=== PATIENT | male | born 1970 | race Caucasian/White ===

== ENCOUNTER 2024-10-04 22:50 | Emergency (ER) | payer BC ==
[~2024-10-04] VITALS: Ht 182.9 cm; Wt 90.0 kg
[2024-10-04 22:53] VITALS: O2SAT 100
[2024-10-04 23:06] VITALS: TEMP 36.6
[2024-10-04] MEDS: ONDANSETRON HCL 4MG/2ML INJ IV ONE (23:51)
[2024-10-04 23:52] LABS: HEMATOCRIT. 43.3 % (42.0-52.0); HEMOGLOBIN. 14.2 g/dL (14.0-18.0); MEAN PLATELET VOLUME 9.2 fl (7.4-10.4); PLATELET 232 x1000/uL (130-400); RED BLOOD CELL COUNT 5.26 mill/uL (4.7-6.1); RED CELL DISTRIBUTION WIDTH 13.0 % (11.6-14.6)
[2024-10-04] MEDS: ASPIRIN 325MG EC TABLET PO ONE (23:52)
[2024-10-04] MEDS: MORPHINE SULFATE 4 MG/ML INJ (FOR IV/IM USE) IV ONE (23:52)
[2024-10-05 00:07] LABS: CREATININE 1.1 mg/dL (0.6-1.3); ETHANOL BLOOD < 10 mg/dL (<10); UREA NITROGEN BLOOD 21 mg/dL (9-23)
[2024-10-05 00:09] LABS: ASPARTATE AMINOTRANSFERASE 26 IU/L (<34); BILIRUBIN DIRECT 0.2 mg/dL (<=3.0); BILIRUBIN TOTAL 0.6 mg/dL (0.1-1.0); PROTEIN TOTAL 7.8 g/dL (6.0-8.3); TROPONIN I HIGH SENSITIVITY < 4 ng/L (3.0-53)
[2024-10-05 00:10] LABS: INR 1.0
[2024-10-05 01:11] LABS: BAND% 10.0 % (1.0-6.0); LYMPHOCYTES % MANUAL 10.0 % (20.0-50.0); MONOCYTES % MANUAL 5.0 % (2.0-8.0); NEUTROPHILS % MANUAL 75.0 % (45.0-75.0); PLATELET ESTIMATE NORMAL
[2024-10-05 02:10] LABS: TROPONIN I HIGH SENSITIVITY < 4 ng/L (3.0-53)
[2024-10-05] MEDS ORDERED: ASPI-1497 MT (02:15)
[2024-10-05 02:20] VITALS: BP 132/83; PULSE 92; RESP 13; O2SAT 99
== END 2024-10-05 02:25 | disposition home or self-care (01) ==
LOC: ER 22:50
DX: R07.89 Other chest pain (principal); F41.0 Panic disorder [episodic paroxysmal anxiety]; I10 Essential (primary) hypertension; Z79.82 Long term (current) use of aspirin
CPT/HCPCS: 80076; 80048; 80320; 83880; 83690; 85025; 85610; 85730; 84484 ×2; 36415 ×2; 71045; 93005 ×2; 96374; 96375; 99285; J2405; J2270; Z7610; G0480